=== PATIENT | male | born 1990 | race Caucasian/White ===

== ENCOUNTER 2016-07-13 21:56 | Emergency (ER) | payer OTHER ==
[~2016-07-13] VITALS: Ht 177.8 cm; Wt 97.7 kg
[2016-07-13 22:51] LABS: INFLUENZA B NEGATIVE
[2016-07-13] MEDS ORDERED: ZITHROMAX 250M250 MG PO (22:53)
[2016-07-13] MEDS ORDERED: PROAIR HFA0.09 MG/AC IH (22:56)
[2016-07-13 22:57] VITALS: PULSE 99; TEMP 99
[2016-07-13 22:59] VITALS: BP 126/79
== END 2016-07-13 23:10 | disposition home or self-care (01) ==
LOC: COL.ER 21:56
PROVIDERS: Emergency Medicine
DX: J18.9 Pneumonia, unspecified organism (principal)

== ENCOUNTER 2016-08-09 05:06 | Emergency (ER) | payer BC ==
[~2016-08-09] VITALS: Ht 177.8 cm; Wt 100.0 kg
[~2016-08-09 05:06] MED LIST: PROAIR HFA0.09 MG/AC IH; ZITHROMAX 250M250 MG PO
[2016-08-09 05:08] VITALS: TEMP 98.1
[2016-08-09] MEDS ORDERED: PREDNISONE20 MG PO (05:47)
[2016-08-09] MEDS ORDERED: ZITHROMAX 250M250 MG PO (05:47)
[2016-08-09 05:59] VITALS: BP 118/78; PULSE 62
== END 2016-08-09 05:52 | disposition home or self-care (01) ==
LOC: COL.ER 05:06
DX: J20.9 Acute bronchitis, unspecified (principal); J45.909 Unspecified asthma, uncomplicated
CPT/HCPCS: J7512

== ENCOUNTER 2016-10-10 09:30 | Emergency (ER) | payer BC ==
[~2016-10-10] VITALS: Ht 177.8 cm; Wt 90.9 kg
[~2016-10-10 09:30] MED LIST changes: +PREDNISONE20 MG PO
[2016-10-10 09:33] VITALS: TEMP 99.4
[2016-10-10 10:16] LABS: BASO % 0.8 % (0.0-2.0); EOS % 0.8 % (0-4.0); GRAN # 3.3 (1.4-6.5); GRAN % 66.5 % (42.2-75.2); HEMATOCRIT 44.8 % (42.0-52.0); HEMOGLOBIN 14.2 g/dl (13.5-18.0); LYMPH # 0.9 (1.2-3.4); LYMPH % 18.1 % (20.0-51.0); MEAN CELL VOLUME 76 fl (80.0-100.0); MEAN CORPUSCULAR HEMOGLOBIN 24 pg (27.0-31.0); MEAN CORPUSCULAR HGB CONC 32 g/dl (33.0-37.0); MEAN PLATELET VOLUME 9.4 fl (7.4-10.4); MONO # 0.7 (0.1-0.6); MONO % 13.6 % (1.7-9.3); PLATELET COUNT 220 K/mm3 (130-400); RED BLOOD COUNT 5.88 M/mm3 (4.20-5.60); REDCELL DISTRIBUTION WIDTH-CV 14.9 % (11.5-14.5); WHITE BLOOD COUNT 4.9 K/mm3 (4.8-10.8)
[2016-10-10 10:28] LABS: ADJUSTED CALCIUM 8.7 mg/dL (8.4-10.2); ALBUMIN 4.4 gm/dL (3.5-5.0); BILIRUBIN,TOTAL 0.7 mg/dL (0.0-1.0); CREATININE, serum 0.82 mg/dL (0.66-1.25); POTASSIUM 4.4 mmol/L (3.4-5.0); TOTAL PROTEIN 7.4 gm/dL (6.4-8.2)
[2016-10-10 11:20] VITALS: BP 111/79; PULSE 97
== END 2016-10-10 11:26 | disposition home or self-care (01) ==
LOC: COL.ER 09:30
PROVIDERS: Physician Assistant
DX: S90.861A Insect bite (nonvenomous), right foot, initial encounter (principal); W57.XXXA Bitten or stung by nonvenomous insect and other nonvenomous arthropods, initial encounter; L98.9 Disorder of the skin and subcutaneous tissue, unspecified; R00.2 Palpitations